=== PATIENT | female | born 1935 | race Caucasian/White ===

== ENCOUNTER → 2024-01-16 14:02 | Outpatient (REF) | payer MEDICARE, SELFPAY | LOC: HWRCS 14:02 | PROVIDERS: ATTENDING PHYSICIAN Internal Medicine Cardiovascular Disease; FAMILY PHYSICIAN Family Medicine | DX: I42.0 Dilated cardiomyopathy (principal) | CPT/HCPCS: 93306 ==

== ENCOUNTER 2025-01-18 13:53 | Emergency (ER) | payer MEDICARE, SELFPAY ==
[2025-01-18] VITALS (8 sets, daily range): BP systolic 125–162; BP diastolic 76–93; PULSE 81–94
[2025-01-18 14:29] LABS: Hematocrit 34.1 % (37.0-47.0); Hemoglobin 11.3 g/dL (12.0-16.0); Mean Corp Hgb Conc. 33.1 g/dL (33.0-37.0); Mean Corpuscular Volume 83.6 fL (81.0-99.0); Nucleated Red Blood Cells % 0 %; Platelet Count 220 10^3/uL (130-400); Red Cell Dist. Width 14.2 % (11.5-14.5)
[2025-01-18 14:53] LABS: ALT (SGPT) 14 U/L (0-35); AST (SGOT) 35 U/L (14-36); Albumin 4.2 g/dl (3.5-5.0); Alkaline Phosphatase 53 U/L (38-126); Blood Urea Nitrogen 15 mg/dl (7-17); Calcium 9.7 mg/dl (8.4-10.2); Carbon Dioxide 26 mmol/L (22-30); Chloride 104 mmol/L (98-107); Estimated Creatinine Clearance 32 ml/min; Glucose 124 mg/dl (70-99); Potassium 4.3 mmol/L (3.5-5.1); Sodium 137 mmol/L (135-145); Total Protein 7.1 g/dl (6.3-8.2); eGFR 54.53
[2025-01-18 15:06] LABS: Troponin I < 0.012 ng/ml
[2025-01-18] MEDS: NSS 1000 IV (15:21)
--- NOTE | 2025-01-18 17:39 | ED.GENMED ---
History of Present Illness
General
Chief Complaint: Heart Rate Problem
Time Seen by Provider: 01/18/25 14:22
History of Present Illness
History of Present Illness:
89-year-old female with history of paroxysmal A-fib on Eliquis presents to the emergency department for evaluation after a syncopal event. She was apparently helping to prepare for a meal, walked inside after carrying things outdoors when she sat
down in a chair and was witnessed to lose consciousness by family. She is back to her baseline at this time. book cleaner who responded noted that the patient appeared to be A-fib. She denies chest pain or palpitations associated with this event. She
admits to poor p.o. intake this morning
Past History
Past History
ED Past Medical History: Arrthythmia and HTN
ED Past Surgical History: None
Patient has exhibited threatening behavior?: No
PSI?: No
Social History
Tobacco: Non-smoker
Review of Systems
Review of Systems
Allergies reviewed?: Yes
All Other Systems: ROS reviewed and negative except as documented in HPI and ROS
Phy Exam
Physical Exam
Physical Exam:
GEN: Well appearing, NAD, WDWN
HEENT: Oral mucosa moist, no scleral icterus, no nasal congestion
Cardiac: Irregular, controlled rate
Lung: No respiratory distress, no tachypnea
MSK: No gross deformity or injuries
Skin: Good color, no pallor or jaundice, no rashes
Neuro: AO x3; CN II-XII grossly intact. BUE strength 5/5 in all martinez, sensation intact and symmetric. BLE strength 5/5 in all martinez, sensation intact and symmetric
Psych: Calm, cooperative
Course
Orders/Labs/Results
Orders:
Orders
01/18/25 13:58
EKG [Electrocardiogram (*1)] Urgent
Reason for Study: Chest Pain
EKG- Treatment ONCE
01/18/25 14:21
Complete Blood Count/With Diff Urgent
Comprehensive Metabolic Panel Urgent
Troponin I Urgent
01/18/25 14:50
0.9% Sodium Chloride 1000 ml [Nss] 1,000 ml IV BOLUS
01/18/25 15:22
Orthostatic VS- Treatment ONCE
Abnormal Lab Results
01/18/25
14:21
RBC 4.08 L 10^6/uL
(4.20-5.40)
Hgb 11.3 L g/dL
(12.0-16.0)
Hct 34.1 L %
(37.0-47.0)
Lymphocytes % 19.4 L %
(20.5-51.1)
Monocytes % 9.5 H %
(1.7-9.3)
Glucose 124 H mg/dl
(70-99)
01/18/25 14:21
01/18/25 14:21
Vital Signs
Initial and Last Documented VS:
Initial Vital Signs
Temp Pulse Resp BP Pulse Ox
98.1 F 77 16 162/78 98
01/18/25 13:59 01/18/25 13:59 01/18/25 13:59 01/18/25 13:59 01/18/25 13:59
Last Documented Vital Signs
Temp Pulse Resp BP Pulse Ox
97.9 F 86 18 161/82 98
01/18/25 18:09 01/18/25 18:09 01/18/25 18:09 01/18/25 17:33 01/18/25 18:09
MDM/Problems Addressed
MDM/Problems Addressed:
Most likely a vasovagal event due to overexertion coupled with poor p.o. intake today. She remained stable in the ED and was given IV fluids, orthostatics unremarkable. Stable for discharge
Comment
Comment:
EKG independently interpreted by me shows a rate controlled atrial flutter
*Pulse Oximetry
SaO2: 99
Oxygen Mode of Delivery: Room air
Patient hypoxic: no
*Critical Care Note
Total Time (30-74mins, 75-104mins- exclusive of procedures): Not Applicable
ED Attending Note
-
Portions of this chart may have been created with voice recognition software.� Occasional wrong word or��sound alike� substitutions may have occurred due to the inherent limitations of voice recognition software.
Discharge Plan
Departure
Patient Disposition: Home (Routine Discharge)
Date of Disposition: 01/18/25
Time of Disposition: 17:39
Patient with high blood pressure during this ER visit?: No
Discharge Problem:
Vasovagal syncope
Instructions: Syncope (fainting)
Prescriptions:
No Action
Eliquis 2.5 mg Tablet
2.5 mg PO BID Qty: 60 0RF
carvedilol 3.125 mg Tablet
3.125 mg PO BID Qty: 60 0RF
midodrine 5 mg Tablet
5 mg PO TID@0800,1300,1800 Qty: 90 0RF
Referrals:
Noreen Duong MD [Family Provider]
Interventions
Interventions:
*Risk Screen - Suicide Last Done: 01/18/25 14:00
*General Assessment Last Done: 01/18/25 14:00
*Neglect/Abuse Screening Last Done: 01/18/25 14:00
*ED- Fall Risk Assessment Last Done: 01/18/25 14:00
*Nursing Disposition Last Done: 01/18/25 18:09
ED- Cardiac Assessment Last Done: 01/18/25 14:00
ED- Pulmonary Assessment Last Done: 01/18/25 14:00
Discharge Date and Time
Discharge Date/Time: 01/18/25 18:00
Print Language: KOREAN
== END 2025-01-18 18:00 | disposition home or self-care (01) ==
LOC: EMR 13:53
PROVIDERS: EMERGENCY PHYSICIAN Emergency Medicine; FAMILY PHYSICIAN Family Medicine
DX: R55 Syncope and collapse (principal); I10 Essential (primary) hypertension; I48.0 Paroxysmal atrial fibrillation; Z79.01 Long term (current) use of anticoagulants
CPT/HCPCS: 99283; 96360; 80053; 84484; 85025; 93005